=== PATIENT | male | born 1995 | race Caucasian/White ===

== ENCOUNTER 2020-10-27 15:30 | Outpatient (RCR) | payer OTHER, SELFPAY ==
--- NOTE | 2020-09-26 13:52 | PTOPEVAL ---
INITIAL PHYSICAL THERAPY EVALUATION and PLAN OF CARE Thank you for referring Sloan Griffin to [facility].? Bhavesh is scheduled to be seen for physical therapy? 2x/week for 4 weeks. Please review, sign, date and return this plan of care HUBER. I agree with and certify that the following plan of care is medically necessary. Referring Physician Date Admitting Provider: Attending Provider: Candido Leach, Referring Provider: *PT Outpatient Evaluation Start: 09/26/20 12:33 Freq: Status: Active Protocol: Document 09/26/20 12:33 SABRINA (Rec: 09/26/20 13:51 SABRINA [id number]) Therapy Assessment Status Assessment Status Assessment Status Evaluation Outpatient Past Medical History Past Medical History No Past Medical/Surgical History Patient/Family Denies Significant Past Medical/ Surgical History Source of Past Medical History Patient Evaluation Information Problem Diagnosis Pain L shoulder joint Onset last year - flare up Subjective Information Sloan has had long Query Text:As Reported By Patient/ standing L shoulder pain - Family couple of years ago - helping to move washer/dryer combo - friend lost 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 More recently - lifted 75# box at work. Sleeping - pain doesn't affect sleep too much - but when wakes up increased pain. Pain will stay with him rest of day. 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 Home Meds Must Be Re-entered With Each Visit. 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
--- NOTE | 2020-10-27 16:18 | PTOPEVAL ---
PHYSICAL THERAPY DISCHARGE SUMMARY Thank you for referring Sloan Griffin to [facility].? Bhavesh has done well in PT - goals have been met. He is to continue with his HEP. He is discharged from PT at this time. I agree with Bhavesh's discharge from PT. Referring Physician Date Admitting Provider: Attending Provider: Candido Leach, MD Referring Provider: Therapy Assessment Status Assessment Status Assessment Status Discharge Evaluation Information Problem Diagnosis Pain L shoulder joint Subjective Information Bhavesh states that his shoulder Query Text:As Reported By Patient/ doesn't hurt like it used to. Family Able to use chain saw, go metal detecting with friend, etc. 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 Pain Assessment Timing of Pain Assessment Timing of Pain Assessment Assessment Pain Scale Pain Scale Used Numeric (1 - 10) Self Report Pain Assessment Left Shoulder(s) Reported Pain Level 0 Lowest Pain Intensity 0 Greatest Pain Intensity 3 Pain Score Pain Score 0: Self Report Upper Extremity Range of Motion Scapular/ Shoulder Range of Motion Left Shoulder Flexion - Active 165 Shoulder Extension - Active 60 Shoulder Abduction - Active 168 Shoulder Medial Rotation - Active 90 Shoulder Medial Rotation - Active T7 Query Text:Reach Behind the Back Shoulder Lateral Rotation - Active 85 Shoulder Lateral Rotation - Active T3 Query Text:Reach Behind the Head Scapular/Shoulder Range of Motion ER in neutral - 88 Comments Upper Extremity Muscle Strength Testing Scapular/Shoulder Left Shoulder Flexion Strength 5 Normal Shoulder Extension Strength 5 Normal Shoulder Abduction Strength 5 Normal Shoulder Medial Rotation Strength 5 Normal Shoulder Lateral Rotation Strength 4+ Good + Shoulder Strength Comments no discomfort with strength testing today Palpation Assessment Palpation Palpation no tenderness at L AC jt, no capsular tightness with L g-h jt capsule Special Tests-Upper Extremity Shoulder Special Tests Empty Can (supraspinatus) Test Negative Left,Negative Right Speed's Test Negative Left,Negative Right Hawkin's Arya Test Negative Left,Negative Right Shoulder Special Tests Comments no discomfort with AC jt compression PT Clinical Summary Clinical Summary Protocol: PTEV
== END 2020-12-25 10:34 | disposition home or self-care (01) ==
LOC: ANHHIPT 15:30
PROVIDERS: Family Provider Pediatrics; PCP Nurse Practitioner; Visit Provider Orthopaedic Surgery Hand Surgery
DX: M25.512 Pain in left shoulder (principal)
CPT/HCPCS: 97110; 97140; 97161

== ENCOUNTER 2020-12-12 12:01 | Outpatient (CLI) | payer OTHER, SELFPAY ==
[2020-12-12 13:21] LABS: Hematocrit 45.4 % (42.0-52.0); Mean Corpuscular HGB Conc 35.2 g/dl (32-36); Mean Corpuscular Hemoglobin 29.6 pg (26-34); Mean Corpuscular Volume 84.1 fl (80-100); Mean Platelet Volume 10.5 fl (7.4-10.4); Platelet Count Result 166 k/mm3 (150-375); Red Cell Distribution Width 12.2 % (11.5-14.5); White Blood Count 9.4 K/mm3 (4.5-10.0)
[2020-12-12 13:33] LABS: Alanine Aminotransferase 32 U/L (4-50); Albumin Level 4.5 g/dL (3.5-5.1); Alkaline Phosphatase 51 U/L (38-126); Anion Gap 7 mmol/L (8-16); Aspartate Amino Transferase 37 U/L (17-59); Bilirubin,Total 0.6 mg/dL (0.2-1.3); Blood Urea Nitrogen 18 mg/dL (9-20); Calcium 8.8 mg/dL (8.4-10.2); Carbon Dioxide 28 mmol/L (22-30); Chloride 106 mmol/L (98-107); Cholesterol 160 mg/dL (0-200); Estimated Glomerular Filt Rate > 60; Glucose 97 mg/dL (75-110); HDL Direct 37 mg/dL; Potassium 3.9 mmol/L (3.4-5.0); Sodium 141 mmol/L (137-145); Triglycerides 146 mg/dL (<150)
[2020-12-12 13:37] LABS: Hemoglobin A1C 4.9 % (<5.7)
[2020-12-12 13:43] LABS: LDL Cholesterol Direct 88 mg/dL
[2020-12-12 14:03] LABS: Thyroid Stimulating Hormone 0.632 uIU/mL (0.465-4.680)
== END 2020-12-12 12:02 | disposition home or self-care (01) ==
DX: F84.0 Autistic disorder (principal)
CPT/HCPCS: 36415; 80053; 80061; 83036; 84443; 85027

== ENCOUNTER 2021-03-19 16:19 | Emergency (ER) | payer OTHER, SELFPAY ==
[2021-03-19 16:36] VITALS: BP 120/87; PULSE 100; RESP 18; TEMP 37; O2SAT 98
--- NOTE | 2021-03-19 16:39 | ED.URI ---
HPI - URI/Sore Throat General Chief Complaint: Upper Respiratory Infection Stated Complaint: Bilateral ear pain, Throat pain Time Seen by Provider: 03/19/21 17:07 Source: patient and RN notes reviewed Mode of arrival: ambulatory Limitations: no limitations History of Present Illness HPI Narrative: 25-year-old male presents with concern for 2 to 3-day history of rhinorrhea, nasal congestion, left ear pain. He reports symptoms started with a sore throat which has since resolved. He denies fever, body aches, chills, sweats, cough, shortness of breath. Reports he has been vaccinated for Covid. MD elicited complaint: nasal congestion (Ear pain) Related Data Home Medications Medication Instructions Recorded Confirmed olanzapine 7.5 mg PO DAILY 03/19/21 03/19/21 Allergies Allergy/AdvReac Type Severity Reaction Status Date / Time No Known Allergies Allergy Verified 03/19/21 17:04 Review of Systems Review of Systems: Narrative: CONSTITUTIONAL: Denies malaise, chills, sweats, or fever. EYES: Denies visual changes, redness, or discharge. ENT: Reports rhinorrhea, congestion, left ear pain. Denies sinus pain and sore throat. CARDIOVASCULAR: Denies chest pain, palpitations, or edema. RESPIRATORY: Denies cough or dyspnea. GASTROINTESTINAL: Denies abdominal pain, nausea, vomiting, diarrhea SKIN: Denies rash or itching. MUSCULOSKELETAL: Denies myalgia. NEUROLOGIC: Denies headache. All systems reviewed & are unremarkable except as noted in HPI and below PMFSH Comments At time of signature, agree with nursing past medical, surgical, social and family history. There is no relevant family history pertinent to the presenting complaint Exam Narrative: Exam Narrative: GENERAL: Well-appearing, well-nourished, and in no acute distress. HEAD: Normocephalic EYES: PERRLA, conjunctivae clear ENT: Nares clear, turbinates erythematous, clear discharge. Mucous membranes moist. TM pearly clark with dull light reflex bilaterally; no tragal tenderness. Oropharynx not erythematous without lesions. Tonsils not enlarged and without exudate, no drooling, no hoarseness, no trismus, uvula midline. NECK: Supple. No lymphadenopathy CHEST: Clear to auscultation, breath sounds equal. No wheezing, rhonchi, rales, or stridor. No respiratory distress, speaks in full sentences. HEART: Regular rate and rhythm. No murmur heard. SKIN: Warm, dry, no rash. NEURO: Alert and oriented x3. PSYCH: Normal mood and affect Course Course Emergency Course: Patient is aware of diagnosis, understands and agrees to treatment plan. Anticipatory guidance given. Patient agrees to follow-up as directed and is aware of reasons to seek care at the emergency department. Portions of this record may have been created with voice recognition software Vital Signs Vital signs: Vital Signs Temperature 98.6 F 03/19/21 16:36 Pulse Rate 100 03/19/21 16:36 Respiratory Rate 18 03/19/21 16:36 Blood Pressure 120/87 03/19/21 16:36 Pulse Oximetry 98 03/19/21 16:36 Temperature 98.6 F 03/19/21 16:36 Pulse Rate 100 03/19/21 16:36 Respiratory Rate 18 03/19/21 16:36 Blood Pressure 120/87 03/19/21 16:36 Pulse Oximetry 98 03/19/21 16:36 Reviewed. MDM - URI/Sore Throat MDM Narrative Medical decision making narrative: Differential diagnosis considered: Adames virus, strep pharyngitis, allergic rhinitis, upper respiratory tract infection, sinusitis, rhinosinusitis, nasopharyngitis. viral pharyngitis, otitis media, otitis externa, pneumonia, bronchitis, viral cough syndrome, viral syndrome, and influenza. Exam findings show no acute concerns or changes; patient is non-toxic appearing and is in no distress. Patient is appropriate for outpatient treatment and follow-up. Critical Care Time Critical Care Time Critical Care Time: No Discharge Plan Discharge Clinical Impression: Upper respiratory infection Qualifiers: URI type: unspecified viral URI Qualified Code(s
== END 2021-03-19 17:21 | disposition home or self-care (01) ==
PROVIDERS: Emergency Provider Nurse Practitioner
DX: J06.9 Acute upper respiratory infection, unspecified (principal)
CPT/HCPCS: 99213; G0463

== ENCOUNTER 2021-04-10 16:15 | Emergency (ER) | payer OTHER, SELFPAY ==
[2021-04-10 16:28] VITALS: BP 126/84; PULSE 86; RESP 18; TEMP 37.4; O2SAT 97
--- NOTE | 2021-04-10 17:01 | ED.SKABFB ---
HPI - Skin/Abscess/Foreign Bdy General Chief complaint: Skin/Abscess/Foreign Body Stated complaint: blister Time Seen by Provider: 04/10/21 16:46 Source: patient, family and RN notes reviewed Mode of arrival: ambulatory Limitations: no limitations History of Present Illness HPI narrative: Patient presents today complaining of burning pain and rash to the dorsums of both feet since waking up this morning. Denies itching. States redness of the rash is significantly worsened after his mother applied cortisone cream to the rash. Patient mowed in his Crocs last night, but he does mowing the same shoes every week without incident. He did shower after he finished mowing. No known contact of any allergens. Changed laundry soaps approximately 2 weeks ago, but has worn close washed in the soap since then without difficulty. Besides the cortisone cream he has not tried any [id number] interventions prior to arrival. MD complaint: rash Related Data Home Medications Medication Instructions Recorded Confirmed olanzapine 7.5 mg PO DAILY 04/10/21 04/10/21 omeprazole 20 mg PO DAILY 04/10/21 04/10/21 Allergies Allergy/AdvReac Type Severity Reaction Status Date / Time No Known Allergies Allergy Verified 04/10/21 16:19 Review of Systems Review of Systems: CONSTITUTIONAL: Denies body aches, fever, chills, or sweats. EYES: Denies visual changes, redness, or discharge. ENT: Denies rhinorrhea, congestion, sore throat, or otalgia. CARDIOVASCULAR: Denies chest pain, palpitations, or edema. RESPIRATORY: Denies cough or dyspnea. GASTROINTESTINAL: Denies abdominal pain, nausea, vomiting, or diarrhea. GENITOURINARY: Denies dysuria or hematuria. SKIN: + Burning rash MUSCULOSKELETAL: Denies back pain, joint pain, or myalgia. NEUROLOGIC: Denies headache, numbness, tingling, or weakness. PSYCH: Denies depression or anxiety. [facility] Past Medical History Medical History (Updated 04/10/21 @ 17:11 by Yolanda Caballero, SOTO, BC) Mood disorder Social History Social History Gender identity (if verbalized by the patient): Male Comments At time of signature, I have reviewed and agree with nursing past medical, surgical, social and family history unless otherwise noted. Please see nursing chart for further information. There is no relevant family history pertinent to the presenting complaint Exam Narrative: GENERAL: Well-appearing, well-nourished, and in no acute distress. HEAD: Normocephalic, atraumatic. EYES: EOMI. No redness or drainage. Conjunctivae normal. ENT: Mucous membranes pink and moist. NECK: Normal AROM. CHEST: No respiratory distress. EXTREMITIES: Normal range of motion. No edema. SKIN: Warm, dry. Capillary refill normal. Normal skin turgor. Mildly erythematous pinpoint scattered petechial rash to dorsums of all toes and extends to mid foot bilaterally. Right 3rd toe is tender to palpation, but no other areas are tender. Scant edema noted to toes. Distal sensation intact in all toes. Capillary refill normal. Pedal pulses normal. Full range of motion of all toes and ankles. NEURO: No focal deficits. Alert and oriented x3. Gait steady. PSYCH: Normal affect. No signs of depression or anxiety. Course Vital Signs Vital signs: Vital Signs Temperature 99.4 F 04/10/21 16:28 Pulse Rate 86 04/10/21 16:28 Respiratory Rate 18 04/10/21 16:28 Blood Pressure 126/84 04/10/21 16:28 Pulse Oximetry 97 04/10/21 16:28 Temperature 99.4 F 04/10/21 16:28 Pulse Rate 86 04/10/21 16:28 Respiratory Rate 18 04/10/21 16:28 Blood Pressure 126/84 04/10/21 16:28 Pulse Oximetry 97 04/10/21 16:28 Reviewed. Pt has been instructed to follow up with his PCP regarding his elevated blood pressure today. MDM - Skin/Abscess/Foreign Bdy Differential Diagnosis Differential diagnosis: Likely cellulitis, eczema, contact dermatitis and other (Tinea)
== END 2021-04-10 17:28 | disposition home or self-care (01) ==
PROVIDERS: Emergency Provider Nurse Practitioner
DX: R23.3 Spontaneous ecchymoses (principal)
CPT/HCPCS: 99211; G0463

== ENCOUNTER 2022-06-03 18:04 | Emergency (ER) | payer OTHER, SELFPAY ==
--- NOTE | 2022-06-03 18:05 | ED.EXTPRO ---
HPI - Extremity Problem General Stated complaint: lt knee pain Time Seen by Provider: 06/03/22 18:05 Source: patient Mode of arrival: ambulatory Limitations: no limitations History of Present Illness HPI Narrative: Sloan is a 26-year-old male patient presenting to the clinic today complaints of left knee pain that began this morning when he awoke.. He reports he had a sharp shooting pain in his knee this morning and is worse with ambulation, stepping up on stairs, and riding his bike. No known injury to the left knee Related Data Home Medications Medication Instructions Recorded Confirmed olanzapine 7.5 mg tablet 7.5 mg PO DAILY 04/10/21 04/10/21 Allergies Allergy/AdvReac Type Severity Reaction Status Date / Time No Known Allergies Allergy Verified 06/03/22 18:20 Review of Systems Review of Systems: Pertinent positives per HPI. Patient denies any fever, chills, rash, headache, visual changes, dizziness, cough, runny nose, sore throat, shortness of breath, chest pain, palpitations, nausea, vomiting, diarrhea, constipation, abdominal pain, or any urinary issues. [facility] Past Medical History Medical History Mood disorder Social History Social History Gender identity (if verbalized by the patient): Male Comments At the time of my signature, I reviewed and agree with the nursing past medical, surgical, social, and family history. There is no relevant family history pertinent to the patient complaint. Exam Narrative: General: Well-developed, well nourished, in no apparent distress Head: Normocephalic, atraumatic. Cardio: Regular rate and rhythm, s1 and s2 normal, no murmur appreciated. Resp: Clear to auscultation bilaterally, no rhonchi, rales, wheezing or rubs. Musculoskeletal: No deformity, mild tenderness to palpation around the anterior joint to palpation, pain with extension of the left knee as well as full flexion, no crepitus felt with flexion and extension, grossly normal range of motion, muscle strength strong and equal, peripheral pulse strong, no edema, no cyanosis, normal gait and station Course Course Emergency Course: Portions of this record may have been created with voice recognition software. Level of Care: Express Care Visit Vital Signs Vital signs: Vital signs reviewed MDM - Extremity (Nontraumatic) MDM Narrative Medical decision making narrative: At the time of visit patient is resting comfortably on the exam table. I suspect the patient has patellofemoral syndrome of the left knee. Supportive measures were discussed with the patient he voiced understanding of discharge instructions and agrees to the treatment plan Discharge Plan Discharge Clinical Impression: Patella-femoral syndrome Qualifiers: Laterality: left Qualified Code(s): M22.2X2 - Patellofemoral disorders, left knee Patient Disposition: Home, Self-Care Condition: Stable Instructions: Antibiotic Form, Patellofemoral Pain Syndrome (ED), Patellofemoral Pain Syndrome Exercises (ED) Additional Instructions: Main treatment for this condition is rest, ice, and elevation Wear Raj wrap as discussed May take Tylenol/Motrin as needed for pain-can take 600 to 800 mg of Motrin and 1 g of Tylenol together every 8 hours. Patellofemoral exercises given Follow-up with your PCP in 1 week if symptoms persist or sooner if they worsen Prescriptions: No Action olanzapine 7.5 mg tablet 7.5 mg PO DAILY omeprazole 20 mg capsule,delayed release(DR/EC) 20 mg PO DAILY Follow-up/Referrals: PHYSICIAN,[facility] [facility] [Primary Care Provider] - Time of Disposition: 18:22 Quality NIHSS Nursing Documentation ED NIHSS nursing documentation: reviewed/agree
[2022-06-03 18:15] VITALS: BP 137/82; PULSE 60; RESP 18; TEMP 36.7; O2SAT 100
== END 2022-06-03 18:29 | disposition home or self-care (01) ==
PROVIDERS: Emergency Provider Nurse Practitioner Family
DX: M22.2X2 Patellofemoral disorders, left knee (principal); F39 Unspecified mood [affective] disorder
CPT/HCPCS: 99212; G0463

== ENCOUNTER 2022-11-04 12:47 | Emergency (ER) | payer OTHER, SELFPAY ==
[2022-11-04 13:00] VITALS: BP 135/79; PULSE 95; RESP 16; TEMP 37.7; O2SAT 98
--- NOTE | 2022-11-04 13:09 | ED.URI ---
HPI - URI/Sore Throat General Chief Complaint: Upper Respiratory Infection Stated Complaint: Sore Throat,Fatigue Time Seen by Provider: 11/04/22 13:09 Source: patient Mode of arrival: ambulatory Limitations: no limitations History of Present Illness HPI Narrative: 27-year-old male presents with complaint of sore throat, mild nasal congestion, cough, chills starting this morning. Afebrile. Denies nausea vomiting diarrhea. No chest pain or shortness of breath. All systems reviewed and negative except as noted above. Related Data Home Medications Medication Instructions Recorded Confirmed olanzapine 7.5 mg tablet 7.5 mg PO DAILY 04/10/21 11/04/22 omeprazole 20 mg capsule,delayed 20 mg PO DAILY 11/04/22 11/04/22 release Allergies Allergy/AdvReac Type Severity Reaction Status Date / Time No Known Allergies Allergy Verified 11/04/22 13:02 Review of Systems Review of Systems: CONSTITUTIONAL: Denies fever. Reports chills, or sweats. EYES: Denies visual changes, redness, or discharge. ENT: Reports rhinorrhea, congestion, sore throat. Denies otalgia. CARDIOVASCULAR: Denies chest pain, palpitations, or edema. RESPIRATORY: reports cough. Denies dyspnea. GASTROINTESTINAL: Denies abdominal pain, nausea, vomiting, or diarrhea. GENITOURINARY: Denies dysuria or hematuria. SKIN: Denies rash or itching. MUSCULOSKELETAL: Denies back pain, joint pain, or myalgia. NEUROLOGIC: Denies headache, numbness, or weakness. PSYCHIATRIC: Denies anxiety or depression. All other systems reviewed are negative, except as documented in HPI. PMFSH Past Medical History Medical History Mood disorder Social History Social History Gender identity (if verbalized by the patient): Male Comments At time of signature, agree with nursing past medical, surgical, social and family history. There is no relevant family history pertinent to the presenting complaint. Exam Narrative: GENERAL: This is a well-nourished, well-developed patient, in no apparent distress. HEAD: normocephalic, atraumatic. EYES: PERRL. Sclera clear/white. Vision is grossly intact. EARS: External ears normal, auditory canals clear and without drainage, TMs normal without perforation. Hearing grossly intact. NOSE: External nose normal with no obvious nasal discharge, nares without redness, no rhinorrhea. THROAT: Mucous membranes moist, erythematous with mild swelling. No exudates. NECK: Neck supple, non-tender without lymphadenopathy, masses or thyromegaly. CARDIOVASCULAR: Regular rate and rhythm without murmurs, gallops, or rubs. RESPIRATORY: Clear to auscultation. Breath sounds equal bilaterally. No wheezes, rales, or rhonchi. SKIN: warm, Dry, intact with no suspicious lesions or rash, good texture and turgor. NEURO: awake, alert, and oriented to person, place and time. There were no obvious focal neurologic abnormalities. EXTREMITIES: No joint tenderness, effusion, or edema noted. Course Course Level of Care: Express Care Visit Vital Signs Vital signs: Vital Signs Temperature 37.7 C H 11/04/22 13:00 Pulse Rate 95 11/04/22 13:00 Respiratory Rate 16 11/04/22 13:00 Blood Pressure 135/79 11/04/22 13:00 Pulse Oximetry 98 11/04/22 13:00 Oxygen Delivery Room Air 11/04/22 13:00 Temperature 37.7 C H 11/04/22 13:00 Pulse Rate 95 11/04/22 13:00 Respiratory Rate 16 11/04/22 13:00 Blood Pressure 135/79 11/04/22 13:00 Pulse Oximetry 98 11/04/22 13:00 Oxygen Delivery Room Air 11/04/22 13:00 Reviewed MDM - URI/Sore Throat MDM Narrative Medical decision making narrative: Patient is aware of diagnosis, understands and agrees to treatment plan. Anticipatory guidance given. Patient agrees to follow-up as directed and is aware of reasons to seek care at the emergency department. Portions of this record
== END 2022-11-04 13:42 | disposition home or self-care (01) ==
PROVIDERS: Emergency Provider Nurse Practitioner Family
DX: J06.9 Acute upper respiratory infection, unspecified (principal); Z20.822 Contact with and (suspected) exposure to COVID-19
CPT/HCPCS: 87081; 87426; 87880; 99213; C9803; G0463

== ENCOUNTER 2023-05-17 15:57 | Outpatient (CLI) | payer OTHER, SELFPAY ==
--- NOTE | ~2023-05-17 | XR_ITS ---
XR knee LT 3V 05/17/2023 16:21 Indication: Left knee pain Procedure: 3 views left knee Comparison: No prior studies for comparison. Findings: There is anatomic alignment. No fracture, subluxation or dislocation. No joint effusion. No foreign bodies. Impression: 1: No significant bone or joint abnormality. Reviewed, dictated and finalized at location A. Impression: 1: No significant bone or joint abnormality.
== END 2023-05-17 15:58 | disposition home or self-care (01) ==
PROVIDERS: PCP Physician Assistant; Visit Provider Physician Assistant
DX: M25.562 Pain in left knee (principal)
CPT/HCPCS: 73562

== ENCOUNTER 2023-07-15 10:07 | Emergency (ER) | payer OTHER, SELFPAY ==
[2023-07-15 10:16] VITALS: BP 114/68; PULSE 61; RESP 18; TEMP 36.3; O2SAT 99
--- NOTE | 2023-07-15 10:21 | ED.URI ---
HPI - URI/Sore Throat General Chief Complaint: Upper Respiratory Infection Stated Complaint: Neck Swelling Time Seen by Provider: 07/15/23 10:21 Source: patient Mode of arrival: ambulatory Limitations: no limitations History of Present Illness HPI Narrative: 27 yo F presents with c/o sore throat and swollen neck glands starting yesterday. Denies having any other symptoms. Afebrile. Neg home covid test. All systems reviewed and negative except as noted above. Related Data Home Medications Medication Instructions Recorded Confirmed olanzapine 7.5 mg tablet 7.5 mg PO DAILY 04/10/21 07/15/23 omeprazole 20 mg capsule,delayed 20 mg PO DAILY 11/04/22 07/15/23 release Allergies Allergy/AdvReac Type Severity Reaction Status Date / Time No Known Allergies Allergy Verified 07/15/23 10:12 Review of Systems Review of Systems: CONSTITUTIONAL: Denies fever, chills, or sweats. EYES: Denies visual changes, redness, or discharge. ENT: Denies rhinorrhea, congestion . Reports sore throat. Denies otalgia. CARDIOVASCULAR: Denies chest pain, palpitations, or edema. RESPIRATORY: Denies cough or dyspnea. GASTROINTESTINAL: Denies abdominal pain, nausea, vomiting, or diarrhea. GENITOURINARY: Denies dysuria or hematuria. SKIN: Denies rash or itching. MUSCULOSKELETAL: Denies back pain, joint pain, or myalgia. NEUROLOGIC: Denies headache, numbness, or weakness. PSYCHIATRIC: Denies anxiety or depression. All other systems reviewed are negative, except as documented in HPI. PMFSH Past Medical History Medical History Mood disorder Social History Social History Gender identity (if verbalized by the patient): Male Comments At time of signature, agree with nursing past medical, surgical, social and family history. There is no relevant family history pertinent to the presenting complaint. Exam Narrative: GENERAL: This is a well-nourished, well-developed patient, in no apparent distress. HEAD: normocephalic, atraumatic. EYES: PERRL. Sclera clear/white. Vision is grossly intact. EARS: External ears normal, auditory canals clear and without drainage, TMs normal without perforation. Hearing grossly intact. NOSE: External nose normal with no obvious nasal discharge, nares without redness, no rhinorrhea. THROAT: Mucous membranes moist, erythema to posterior pharynx without exudates or swelling. NECK: Neck supple, non-tender without lymphadenopathy, masses or thyromegaly. CARDIOVASCULAR: Regular rate and rhythm without murmurs, gallops, or rubs. RESPIRATORY: Clear to auscultation. Breath sounds equal bilaterally. No wheezes, rales, or rhonchi. \ SKIN: warm, Dry, intact with no suspicious lesions or rash, good texture and turgor. NEURO: awake, alert, and oriented to person, place and time. There were no obvious focal neurologic abnormalities. EXTREMITIES: No joint tenderness, effusion, or edema noted. Course Course Level of Care: Express Care Visit Vital Signs Vital signs: Vital Signs Temperature 36.3 C L 07/15/23 10:16 Pulse Rate 61 07/15/23 10:16 Respiratory Rate 18 07/15/23 10:16 Blood Pressure 114/68 07/15/23 10:16 Pulse Oximetry 99 07/15/23 10:16 Oxygen Delivery Room Air 07/15/23 10:16 Temperature 36.3 C L 07/15/23 10:16 Pulse Rate 61 07/15/23 10:16 Respiratory Rate 18 07/15/23 10:16 Blood Pressure 114/68 07/15/23 10:16 Pulse Oximetry 99 07/15/23 10:16 Oxygen Delivery Room Air 07/15/23 10:16 Reviewed MDM - URI/Sore Throat MDM Narrative Medical decision making narrative: positive Rapid strep test. Will treat with amoxicillin. Patient is aware of diagnosis, understands and agrees to treatment plan. Anticipatory guidance given. Patient agrees to follow-up as directed and is aware of reasons to seek care at the emergency department. Port
== END 2023-07-15 10:41 | disposition home or self-care (01) ==
PROVIDERS: Emergency Provider Nurse Practitioner Family; PCP Physician Assistant
DX: J02.0 Streptococcal pharyngitis (principal)
CPT/HCPCS: 87880; 99213; G0463

== ENCOUNTER 2023-08-16 13:00 | Outpatient (RCR) | payer OTHER, SELFPAY ==
--- NOTE | 2023-06-10 09:08 | PCPTNOTE ---
Patient was called after was late for scheduled appointment. He rescheduled to next available slot 1.5 weeks from today.
--- NOTE | 2023-06-22 16:49 | OPREHPOC ---
Outpatient Therapy Plan of Care This is a Multidisciplinary Plan of Care that may contain components documented by all disciplines (PT, OT, and ST.) PT Problem 1 PT Problem #1 Knowledge Deficit PT Goal 1 Goal Pt will be independent in HEP Pt will verbalize understanding of diagnosis and prognosis Target Visit 4 PT Problem 2 PT Problem #2 Pain PT Goal 1 Goal Pt will report greatest pain level at 3/10 or less to improve ADLs Target Visit 4 PT Goal 2 Goal Pt will report resolution of pain to return to PLOF Target Visit 8 PT Problem 3 PT Problem #3 Impaired Functional Mobil PT Goal 1 Goal Pt will demo appropriate lunge and squat kinematics without cueing and without pain Target Visit 8
--- NOTE | 2023-06-22 16:49 | PTOPEVAL1 ---
Assessment and note entered by Jerilyn Lim, PT Evaluation Information Assessment Status Evaluation Diagnosis Left knee pain Onset couple months ago Subjective Information x-rays normal Uses a foam roller and rolls out knee and stretching at home and at the gym 5-7 days a week. Uses an chary for his workouts. Has lost 100 lbs in the last year. 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 For home to work is a little over a mile. 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 Varies. Standing all day at work bothers knee but work will at times allow him to walk out an order. Reports in April slipped at work on laundry detergent while in the trailer. Did not file worker's compensation Reported Pain Level Pain Score 0: Self Report Assessment PT Clinical Summary Pt is a highly active young adult with complaints of left knee pain. Demo's good functional strength however demo's abnormal ankle/foot/knee alignment , (+) testing for ligament laxity of left knee and possibly meniscus damage, and poor kinematics with high level activities. Pt has been educated on multiple modifications today to initiate plan of care including appropriate shoe zee and orthotics, cryotherapy, alignment, and kinematics of movement. Pt will greatly benefit from physical therapy to progress plan and return to pain-free prior level of function Plan of Care PT Services Indicated Yes Treatment Frequency and 1x weekly x 8 weeks Duration These treatments will address the objective and functional deficits as defined above. The patient will be advanced safely and appropriately in order for the patient to progress towards his/her prior level of function. Additional exercises will be introduced and as well as a comprehensive home exercise program upon discharge, if needed, ?to ensure carryover of functional gains achieved in the clinic. This treatment plan has been reviewed and agreement upon by the patient.
--- NOTE | 2023-07-26 09:55 | PCPTNOTE ---
Patient called & cancelled scheduled appointment this date due to patient being called into work
--- NOTE | 2023-08-16 13:48 | PTOPDC ---
Assessment and note entered by Jerilyn Lim, PT Assessment Status Discharge Diagnosis Left knee pain Onset couple months ago Subjective Information Self-percieved improvement: 99% Reports is doing a lot better. Hasn't had to much pain. Did a biking challenge today at the gym with a weighted wheel and had no pain. 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 Reported Pain Level Pain Score 0: Self Report Assessment PT Clinical Summary Pt has attended therapy consistently for knee pain . He has applied instruction to his work out regiment and activities, today reports feeling 99% improved overall. 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 He reports he has been able to return to high level bike riding with resistance without pain. Today he was instructed on maintaining his progress, when to return to therapy, and benefits of continuing stretching. As patient has met all his goals and therapy related goals, he is being discharged at this time. Plan of Care PT Services Indicated No
== END 2023-08-16 13:53 | disposition home or self-care (01) ==
LOC: ANHHIPT 13:00
PROVIDERS: PCP Physician Assistant; Visit Provider Physician Assistant
DX: M25.562 Pain in left knee (principal)
CPT/HCPCS: 97014; 97110; 97112; 97161; 97750; G0283

== ENCOUNTER 2023-08-23 12:48 | Emergency (ER) | payer OTHER, SELFPAY ==
--- NOTE | ~2023-08-23 | XR_ITS ---
XR knee LT 3V 08/23/2023 13:46 Indication: Left knee pain Procedure: 3 views left knee Comparison: 05/17/2023 Findings: There is anatomic alignment. No fracture, subluxation or dislocation. No joint effusion. No foreign body. Impression: 1: No significant bone or joint abnormality. Reviewed, dictated and finalized at location L. [facility] PRESS TENDER HEAD Impression: 1: No significant bone or joint abnormality.
[2023-08-23 13:26] VITALS: BP 137/89; PULSE 68; RESP 16; TEMP 36.3; O2SAT 100
--- NOTE | 2023-08-23 13:54 | ED.LOWEXIN ---
HPI - Extremity Injury (Lower) General Chief Complaint: Extremity Injury, Lower Stated Complaint: Left Knee Injury Time Seen by Provider: 08/23/23 13:45 Source: patient Mode of arrival: ambulatory Limitations: no limitations History of Present Illness HPI Narrative: Sloan is a 27-year-old male patient presenting to clinic today with complaints of left knee pain. He reports he injured his near by a week ago when pulling a Pallet off the truck and states that the palate slipped and then he felt a pop in his knee. Is having pain to the posterior knee. Related Data Home Medications Medication Instructions Recorded Confirmed olanzapine 7.5 mg tablet 7.5 mg PO DAILY 04/10/21 07/15/23 omeprazole 20 mg capsule,delayed 20 mg PO DAILY 11/04/22 07/15/23 release Allergies Allergy/AdvReac Type Severity Reaction Status Date / Time No Known Allergies Allergy Verified 07/15/23 10:12 Review of Systems Review of Systems: Pertinent positives per HPI. Patient denies any fever, chills, rash, headache, visual changes, dizziness, cough, runny nose, sore throat, shortness of breath, chest pain, palpitations, nausea, vomiting, diarrhea, constipation, abdominal pain, or any urinary issues. PMFSH Past Medical History Medical History Mood disorder Social History Social History Gender identity (if verbalized by the patient): Male Comments At the time of my signature, I reviewed and agree with the nursing past medical, surgical, social, and family history. There is no relevant family history pertinent to the patient complaint. Exam Narrative: General: Well-developed, well nourished, in no apparent distress Head: Normocephalic, atraumatic. Cardio: Regular rate and rhythm, s1 and s2 normal, no murmur appreciated. Resp: Clear to auscultation bilaterally, no rhonchi, rales, wheezing or rubs. Musculoskeletal: No deformity, no swelling, tender to palpation over the PCL with some mild discomfort over the anterior/medial/lateral knee, pain with full flexion and full extension of the left knee, grossly normal range of motion, muscle strength strong and equal, peripheral pulse strong, no edema, no cyanosis, normal gait and station Course Course Emergency Course: Portions of this record may have been created with voice recognition software. Level of Care: Express Care Visit Vital Signs Vital signs: Vital Signs Temperature 36.3 C L 08/23/23 13:26 Pulse Rate 68 08/23/23 13:26 Respiratory Rate 16 08/23/23 13:26 Blood Pressure 137/89 08/23/23 13:26 Pulse Oximetry 100 08/23/23 13:26 Temperature 36.3 C L 08/23/23 13:26 Pulse Rate 68 08/23/23 13:26 Respiratory Rate 16 08/23/23 13:26 Blood Pressure 137/89 08/23/23 13:26 Pulse Oximetry 100 08/23/23 13:26 Vital signs reviewed MDM - Extremity Injury (Lower) MDM Narrative Medical decision making narrative: At the time of visit patient is resting comfortably on the exam table. Patient appears to be nontoxic. Left knee x-ray was performed supportive measures were discussed with the patient and they voiced understanding discharge instructions and agrees to treatment plan. Return precautions reviewed Differential Diagnosis Differential diagnosis: Likely acute internal derangement of knee and other (Knee strain) Imaging Data Radiologist's impression: ITS Impressions Knee X-Ray 08/23/23 13:46 Impression: 1: No significant bone or joint abnormality. Discharge Plan Discharge Clinical Impression: Knee sprain Qualifiers: Encounter type: initial encounter Involved ligament of knee: unspecified ligament Laterality: left Qualified Code(s): S83.92XA - Sprain of unspecified site of left knee, initial encounter Patient Disposition: Home, Self-Care Condition: Stable Instructions: Antibiotic Form,
== END 2023-08-23 14:07 | disposition home or self-care (01) ==
PROVIDERS: Emergency Provider Nurse Practitioner Family; PCP Physician Assistant
DX: S83.92XA Sprain of unspecified site of left knee, initial encounter (principal); X50.0XXA Overexertion from strenuous movement or load, initial encounter
CPT/HCPCS: 73562; 99213; G0463

== ENCOUNTER 2023-12-13 10:45 | Outpatient (RCR) | payer OTHER, SELFPAY ==
--- NOTE | 2023-10-11 15:12 | PTOPEVAL1 ---
Assessment and note entered by Jerilyn Lim, PT Evaluation Information Assessment Status Evaluation Diagnosis Pain in left knee, weakness Onset 09/18/23 Subjective Information Pt reports was pulling pallets at work and was moving in a straight line down a ramp and knee popped and he hit the ground . Was pulling tote behind him. Received an MRI that was read as normal Work restrictions currently 30 minutes standing at a time, and only pushing/pulling 15 lbs. 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 Had previously performed therapy and completed therapy then reinjured at work. Pt previously had ridden his bike for commuting and now is driving. Currently working out 4 days a week with 3 rest days. Has modified work out to minimize legs but noticed that when he wasn't working his legs the knee hurt worse. Started working out while was waiting for therapy since therapy approval took so long. So returned to working out with glute bridges and hamstring extensions. Focusing on glutes and hamstrings, no longer performing leg press. Reports is going through his insurance because work comp disagreed with his doctor. Reports therapeutic case manager was fighting with pt's MD, yelling at her. MRI went thru his insurance as well. Reports has had 3 caser since this injury. The most current was Marty Sood Reported Pain Level Pain Score 0: Self Report Assessment PT Clinical Summary Pt presents after work related injury to left knee . Had previously completed therapy for left knee pain with success and was able to return to full activity. Pt reports pain with squatting and standing the most. Pt varies from 0-7/10. Reports increased pain in posterior knee with palpation and deep squats, with valgus and varus in neutral, postures in genu recurvatum bilat. Presentation suggestive of sprain/strain of tissues posterior knee tissues. Pt also demos decreased lateral strength in gluteus medius and adductors bilaterally. Pt will benefit from physical therapy to improve strength, standing postures, and pain to return to PLOF. Plan of Care Interventions Electrical Stimulation,Hot Pack/Cold Pack,Manual Therapy,Neuro Re-education,Patient/Caregiver Educati,Therapeutic Activities,Therapeutic Exercise,Self-Care/Home Management,Ultrasound Other Interventions taping, dry needling PT Services Indicated Yes Treatment Frequency and 1-2x weekly x 10 visits Duration These treatments will address the objective and functional deficits as defined above. The patient will be advanced safely and appropriately in order for the patient to progress towards his/her prior level of function. Additional exercises will be introduced and as well as a comprehensive home exercise program upon discharge, if needed, ?to ensure carryover of functional gains achieved in the clinic. This treatment plan has been reviewed and agreement upon by the patient.
--- NOTE | 2023-10-11 15:13 | OPREHPOC ---
Outpatient Therapy Plan of Care This is a Multidisciplinary Plan of Care that may contain components documented by all disciplines (PT, OT, and ST.) PT Goal 1 Goal Pt will be independent in HEP Pt will verbalize understanding of diagnosis and prognosis Target Visit 5 PT Problem 2 PT Problem #2 Pain PT Goal 1 Goal Pt will report greatest pain level at 3/10 or less to improve ADLs and activities Target Visit 5 PT Goal 2 Goal Pt will report resolution of pain to return to PLOF Target Visit 10 PT Problem 3 PT Problem #3 Impaired Range of Motion PT Goal 1 Goal Pt will demo AROM 0-130 left knee to equal unaffected knee Target Visit 10 PT Problem 4 PT Problem #4 Impaired Strength PT Goal 1 Goal Pt will demo strength of 4+/5 or greater in all tested planes LLE Target Visit 10
--- NOTE | 2023-11-08 09:12 | PCPTNOTE ---
Patient called & cancelled scheduled appointment this date due to having plans.
--- NOTE | 2023-12-14 17:39 | PTOPDC ---
Assessment and note entered by Jerilyn Lim, PT Assessment Status Discharge Diagnosis Pain in left knee Onset 09/18/23 Subjective Information Pt reports he has been able to return to normal weight lifting without issue. Reports was able to play pickle ball yesterday for 4 hours and had some sharp pain in the back of the left knee. Reports did some stretches and felt better. Pt still working for [employer], has been cleared to return to work. 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 Pt reports only has pain here and there but then it goes away is only issue having. Self-perceived improvement: 85%, last bit is due to the pain that occurs with high level activities Reported Pain Level Pain Score 0: Self Report Assessment PT Clinical Summary Pt has attended therapy consistently for left knee pain normal MRI. Pt paulo's ligament laxity overall however special tests are all negative for issues. Pt paulo's improved pain and with greatly improved knee kinematics with high level static and low level dynamic activities. Did have difficulty with coordination with high level dynamic activities with alignment and foot planting, however pt reports is doing well with his activities both at work and recreationally. He has been educated on his home exercise program, and when to return to therapy if is needed in the future. Plan of Care PT Services Indicated No
== END 2023-12-15 14:46 | disposition home or self-care (01) ==
LOC: ANHHIPT 10:45
PROVIDERS: PCP Physician Assistant; Visit Provider Physician Assistant
DX: M25.562 Pain in left knee (principal)
CPT/HCPCS: 97014; 97110; 97112; 97161; 97530; 97750; G0283

== ENCOUNTER 2024-01-11 11:25 | Outpatient (CLI) | payer OTHER, SELFPAY ==
[2024-01-11 13:42] LABS: LDL Cholesterol Direct 81 mg/dL
[2024-01-11 14:24] LABS: Alanine Aminotransferase 25 U/L (6-50); Albumin Level 4.8 g/dL (3.5-5.1); Alkaline Phosphatase 48 U/L (38-126); Anion Gap 8 mmol/L (4-12); Aspartate Amino Transferase 24 U/L (17-59); Bilirubin,Total 1.2 mg/dL (0.2-1.3); Blood Urea Nitrogen 15 mg/dL (9-20); Calcium 9.3 mg/dL (8.4-10.2); Carbon Dioxide 26 mmol/L (22-30); Chloride 107 mmol/L (98-107); Cholesterol 140 mg/dL (0-200); Estimated Glomerular Filt Rate > 60; Glucose 93 mg/dL (65-110); HDL Direct 47 mg/dL; Potassium 3.9 mmol/L (3.4-5.0); Sodium 141 mmol/L (137-145); Triglycerides 55 mg/dL (<150)
[2024-01-11 14:55] LABS: Thyroid Stimulating Hormone 0.546 uIU/mL (0.465-4.680)
[2024-01-11 15:09] LABS: Hemoglobin A1C 4.8 % (<5.7)
== END 2024-01-11 11:26 | disposition home or self-care (01) ==
PROVIDERS: PCP Physician Assistant
DX: F31.9 Bipolar disorder, unspecified (principal); F84.0 Autistic disorder
CPT/HCPCS: 36415; 80053; 80061; 83036; 84443

== ENCOUNTER 2024-04-24 08:00 | Outpatient (RCR) | payer OTHER, SELFPAY ==
--- NOTE | 2024-03-14 13:53 | PTOPEVAL1 ---
Assessment and note entered by Jerilyn Lim, PT Evaluation Information Assessment Status Evaluation Diagnosis pain in left shoulder ICD-10 Condition Codes (PT) M25.512,Weakness R53.1 Other ICD-10 Condition Codes ( abnormal posture R29.3 PT) Onset 5 weeks Subjective Information Pt reports initial injury to left shoulder 6 years ago, was told it was a slight tear that should heal on it's own. Had not been having any issues in the last two years. Started bothering him again just a couple weeks ago badly, but about 5 weeks ago noticed a mild discomfort so modified activities in hopes pain would resolve. Pain has worsened and is now worse than it was during initial injury. Pt states as provided naproxen by MD, has been alternating this with Tylenol which neither seems to help. Has also been alternating heat and ice and stretching it. Pain is in front of shoulder and up into left side of neck. Reports with bring arm straight up in the air the shoulder will pop Has not been doing his UE work outs. Is working at [employer] [place] [facility] [place] Has been deboarding and boarding as a modification to work secondary to shoulder pain. Reported Pain Level Pain Score 8: Self Report Assessment PT Clinical Summary Pt presents with c/o left shoulder pain that has progressed over the past 5 weeks. Prior history of partial tear 6 years ago but this had resolved. Reports prior to 5 weeks ago had not had pain in the left shoulder in two years. Evaluation shows decreased active ROM, decreased strength, and multiple (+) special tests for rotator cuff involvement. Current his employer has modified his work from heavy lifting to minimal lifting to accommodate patient discomfort, and patient has ceased his upper extremity work outs. He currently has pain even at rest and has increased pain with laying down. Pt will benefit from physical therapy to address deficits, improve pain, and return to PLOF. Plan of Care Interventions Electrical Stimulation,Hot Pack/Cold Pack,Manual Therapy,Neuro Re-education,Patient/Caregiver
--- NOTE | 2024-03-14 13:54 | OPREHPOC ---
Outpatient Therapy Plan of Care This is a Multidisciplinary Plan of Care that may contain components documented by all disciplines (PT, OT, and ST.) PT Problem 1 PT Problem #1 Knowledge Deficit PT Goal 1 Goal Pt will be independent in HEP Pt will verbalize understanding of diagnosis and prognosis Target Visit 6 PT Problem 2 PT Problem #2 Pain PT Goal 1 Goal Pt will report lowest pain rating at 0/10 to show improvement in overall discomfort Target Visit 3 PT Goal 2 Goal Pt will report greatest pain level at 3/10 or less to improve ADLs and activities Target Visit 6 PT Problem 3 PT Problem #3 Impaired Range of Motion PT Goal 1 Goal Pt will demo equal ROM L shoulder compared to to R shoulder without pain Target Visit 6 PT Problem 4 PT Problem #4 Impaired Strength PT Goal 1 Goal Pt will demo equal strength BUE in all tested planes Target Visit 6
--- NOTE | 2024-04-24 08:56 | PTOPPROG ---
Assessment and note entered by Jerilyn Lim, PT Evaluation Information Assessment Status Progress Diagnosis pain in left shoulder ICD-10 Condition Codes (PT) M25.512,Weakness R53.1 Other ICD-10 Condition Codes ( abnormal posture R29.3 PT) Onset 11 weeks Subjective Information Arm still pops when bringing it up in the air to stretch. Reports shoulder has it's ups and downs , doesn't think is going to get better. Has not had MRI on left shoulder. Wonders if there is some arthritis in his shoulder. Had tried to progress shoulder at gym with show dog trainer and ceased this as was feeling worse . 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 Self perceived improvement 40-50% Assessment PT Clinical Summary Pt has consistently attended therapy for left shoulder pain. History of initial injury 6 years ago, did rehab and after multiple years it improved. Approx 11 weeks ago noted increasing pain that progressed until it felt worse than initial injury. Initially demo'd weakness, and decreased ROM, had to modify work related activities, and had multiple special tests. Today ROM is closer to unaffected UE ROM, strength is 5/ 5 in all tested planes, and special tests only show mild weakness with supraspinatus testing. While patient has been able to return to work activities, he has not been able to return to his high level recreational activities such as weight lifting. Also continues to have pain though his function is improving. Pt will benefit from further therapy to address high level strengthening and activities to reduce pain and return to PLOF. Plan of Care Interventions Electrical Stimulation,Hot Pack/Cold Pack,Manual Therapy,Neuro Re-education,Patient/Caregiver Educati,Therapeutic Activities,Therapeutic Exercise,Self-Care/Home Management,Ultrasound PT Services Indicated Yes Treatment Frequency and 1x weekly x 6 visits Duration These treatments will address the objective and functional deficits as defined above. The patient will be advanced safely and appropriately in order for the patient to progress towards his/her prior level of function. Additional exercises will be introduced and as well as a comprehensive home exercise program upon discharge, if needed, ?to ensure carryover of functional gains achieved in the c
--- NOTE | 2024-05-16 09:24 | PTOPDC ---
Assessment and note entered by Jerilyn Lim, PT Evaluation Information Assessment Status Discharge - Pt Not Present Diagnosis pain in left shoulder ICD-10 Condition Codes (PT) M25.512,Weakness R53.1 Other ICD-10 Condition Codes ( abnormal posture R29.3 PT) Onset 11 weeks Subjective Information Arm still pops when bringing it up in the air to stretch. Reports shoulder has it's ups and downs , doesn't think is going to get better. Has not had MRI on left shoulder. Wonders if there is some arthritis in his shoulder. Had tried to progress shoulder at gym with field trainer and ceased this as was feeling worse . 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 Self perceived improvement 40-50% Assessment PT Clinical Summary As of last reevaluation pt had returned to 5/5 strength, greater ROM, was able to perform ADLs and work activities with modifications. Further authorization was requested from insurance and only two visits were granted. With discussion with pt he stated he would like to be finished with therapy for now. He has not received an MRI for the shoulder, continues to have pain and crepitus with activities, and has yet to return fully to his high level activities with his fitness regiment. Pt is thus being discharged per request however would likely benefit from a follow up with PCP and possibly further imaging and/or ortho consult. Plan of Care PT Services Indicated No
== END 2024-05-16 09:27 | disposition home or self-care (01) ==
LOC: ANHHIPT 08:00
PROVIDERS: PCP Physician Assistant; Visit Provider Physician Assistant
DX: M25.512 Pain in left shoulder (principal)
CPT/HCPCS: 97014; 97035; 97110; 97112; 97140; 97161; 97750; G0283

== ENCOUNTER 2024-05-30 17:43 | Emergency (ER) | payer OTHER, SELFPAY ==
[2024-05-30 17:51] VITALS: BP 143/84; PULSE 71; RESP 16; TEMP 36.7; O2SAT 99
--- NOTE | 2024-05-30 17:52 | ED.URI ---
HPI - URI/Sore Throat General Chief Complaint: Upper Respiratory Infection Stated Complaint: throat tightness Time Seen by Provider: 05/30/24 17:53 Source: patient, RN notes reviewed and old records reviewed Mode of arrival: ambulatory Limitations: no limitations History of Present Illness HPI Narrative: 28-year-old male to [facility] for complaint of throat tightness for 1 week that has become worse over the past 2 days. Patient reports a history of allergies to cats. 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 Patient states that he does wear a respirator the majority of his work day. Patient denies fever, cough, hoarseness , difficulty swallowing, shortness of breath. Patient has been treating at home with Benadryl before bed with some relief. Patient resting comfortably in exam no acute distress. Respirations even and nonlabored. Patient able to control secretions. Patient able to tolerate fluids by mouth. Patient able to speak in full sentences without difficulty. Related Data Home Medications Medication Instructions Recorded Confirmed olanzapine 7.5 mg tablet 7.5 mg PO DAILY 04/10/21 05/30/24 omeprazole 20 mg capsule,delayed 20 mg PO DAILY 11/04/22 05/30/24 release Allergies Allergy/AdvReac Type Severity Reaction Status Date / Time cat dander Allergy Swelling Verified 05/30/24 18:06 of Lip/Tongue/Throat Review of Systems Review of Systems: All systems reviewed & are unremarkable except as noted in HPI and below Constitutional: Constitutional: Reports no additional constitutional complaints Eyes: Eyes: Reports no additional eye complaints ENT: Reports as per HPI and Reports sore throat ( patient describes as throat tightness) Cardiovascular: Cardiovascular: Reports no additional cardiovascular complaints, Denies chest pain and Denies dyspnea Respiratory: Respiratory: Reports no additional respiratory complaints, Denies cough and Denies dyspnea Musculoskeletal: Musculoskeletal: Reports no additional musculoskeletal complaints Neurologic: Reports system reviewed and no additional complaints, except as documented Psychiatric: Psychiatric: Reports no additional psychiatric complaints PMFSH Past Medical History Medical History Mood disorder Social History Social History Gender identity (if verbalized by the patient): Male Comments At the time of my signature, I reviewed and agree with the nursing past medical, surgical, social, and family history. There is no relevant family history pertinent to the patient complaint. Exam Const: General: cooperative, healthy appearing, comfortable, no acute distress, alert and well nourished Nutritional Appearance: well nourished Orientation/consciousness: patient oriented x3 Limitations: no limitations HENMT: Head: normal to inspection Ears: external ears normal Face/Nose/Sinus: Normal external nose present, Normal nares present, normal facial exam, No erythema and No edema Face and sinus: normal facial exam, no erythema and no edema Mouth: Yes Normal oral and palatal mucosa present Throat: uvula midline and posterior oropharynx abnormal erythema; no edema Eyes: General: appearance normal, both eyes and all related structures Neck: Neck: normal visual inspection, full ROM and no meningeal signs Lymphatic: no lymphadenopathy noted and no lymphedema noted Chest: Chest palpation & inspection: normal inspection of the chest Resp: Effort & Inspection: normal respiratory effort and able to speak in complete sentences Auscultation: clear to auscultation bilaterally Cardio: Jugular venous distension: no JVD Rate: regular rate Rhythm: regular rhythm Back/Spine/Pelvis: Cervical Spine: cervical ROM normal Skin: General skin exam: normal color, no rashes
[2024-05-30 18:15] LABS: EDSTREPNEGPOS1 Negative (Negative)
== END 2024-05-30 18:25 | disposition home or self-care (01) ==
PROVIDERS: Emergency Provider Nurse Practitioner Family; PCP Physician Assistant
DX: J30.81 Allergic rhinitis due to animal (cat) (dog) hair and dander (principal)
CPT/HCPCS: 87081; 87880; 99213; G0463

== ENCOUNTER 2025-01-08 18:52 | Emergency (ER) | payer OTHER, SELFPAY ==
--- OUTSIDE RECORDS SUMMARY | 2025-01-08 18:56 | XMS_ITS | Clinical Summary ---
Author Organization [facility] Address [address] [place] [address] Care Team Providers Care Engineering Specialist Name Role Phone Malika El MD Primary Care Provider Source Comments [facility],non-owned Affiliates and Associated Physician Practices is amultiple site organization consisting of ambulatory clinics and hospital sitesin [place], [place], [place] and [place]. This disclosure is being madepursuant to the Care Everywhere program and may not contain all information available regarding this patient. Last updated [employer] [facility] Allergies Active Allergy Reactions Criticality Noted Date Comments Sulfamethoxazole W-Trimethoprim Rash Low 03/2014 Medications * Be aware that medications may not be up to date on this document. Alwaysverify current medications with the patient. OLANZapine (ZYPREXA) 7.5 MG tablet Take 7.5 mg by mouth once daily. Active omeprazole (PRILOSEC) 20 MG capsule Take 20 mg by mouth once daily Active Active Problems Problem Noted Date Diagnosed Date Hyperthyroidism 08/06/2014 Overview (03/30/2016): 06/25/2014 - [place], [place] - Na 140 mmol/L, K 4.4 mmol/L, Cl 103 mmol/L, CO2 69392 mmol/L, TSH 0.03 uIU/mL (0.27-4.20); WBC 7.4 K, hemoglobin 15.9 g/dL, hematocrit 48 %, ples 234 06/27/2014 - [place], [place] - free T4 1.82 ng/dL (0.90-1.70), total T3 2.22 ng/mL (0.80-2.00). 07/26/2014 - [place], [place] - TSH 0.00 uIU/mL (0.35-4.94), free T4 1.67 ng/dL (0.70-1.48), total T3 256 ng/mL (60-181); hemoglobin A1c 5.0%, glucose 100 mg/dL, insulin 5.7 uIU/mL (2.0-19.5) 08/05/2014 - [email or web address] - Thyroid peroxidase antibody 1 IU/mL (< 9.0), thyroglobulin antibody < 1 IU/ml (< 1.0), TSI 39 % (< 140); TSH 0.01 uiU/L (0.5-4.30); total T3 334 ng/dL (84-179); total T4 10.8 ug/dL (4.5-12.0); T3/T4 30.8 (> 20, Graves disease). date Age (yr) TSH (uIU/mL) Free T4 (ng/dL) Total T4 (ug/dL) Total T3 (ng/dL) Methimazole (mg/day) 06/25/14-05/10 0.03 (0.27-4.20) - - - 06/27/14-05/10 - 1.82 (0.90-1.82) - 2.22 ng/mL (0.80-2.0) - 07/26/14-06/09 0.00 (0.35-4.94) 1.67 (0.7-1.48) - 256 (60-181) - 08/05/14-07/10 0.01 uIU/L (0.5-4.30) - 10.8 (4.5-12.00) 334 (84-179) - 11/26/14 1.67 (0.35-4.94) - 5.16 (4.87-11.72) - 5 02/28/15 1.14 (0.35-4.94) - 5.90 (4.87-11.72) 139 (60-181) 5 04/30/15 17-03/09 1.02 (0.35-4.94) - 6.97 (4.87-11.720 127 (60-181) 5 05/28/15 17-812 0.75 (0.35-4.94) - 7.18 (4.87-11.72) 136 (60-181) - 09/26/15 18 1.12 (0.35-4.94) 6.58 (4.87-11.72) 137 (60-181) - 08/08/14 - TSI 39% (< 140) thyroid peroxidase antibody 1 IU/mL (< 9.0), thyroglobulin antibody < 1 IU/ml (< 1) 03/12/15 - [facility] - TSH receptor antibody < 0.51 IU/L (< 1.75) Assessment & Plan (03/30/2016 12:54 PM CDT): 1. Obtain serum TSH, total T3/T4, basic metabolic panel, and hemoglobin A1c following today's office appointment. 2. Return appointment in six months. 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 1. Expectant observation (consider thyroid uptake scan if hyperthyroidism recurs). . 2. Return appointment in six months. Assessment & Plan (06/02/2015 3:14 PM CDT): Hyperthyroidism; ? Resolved (acute vs subacute thyroiditis vs ?) 1. Expectant observation. 2. Repeat serum TSH, total T3 and total T4 in three months. 3. Return appointment in six months. Assessment & Plan (02/25/2015 1:57 PM CDT): Hyperthyroidism; etiology unclear; euthyroid. 1. Obtain serum TSH, total T3 and total T4 and TSH-receptor antibody following today's office appointment (laboratory requisition given). 2. I will contact adoptive mother, Sharita Griffin (contact telephone: [phone]) with the test results after I have received them and any additional recommendations. 3. Methimazole 5 mg daily. 4. Consider discontinuing methimazole if serum TSH-receptor antibody is unmeasureable. 5. Return appointment in three months. 6. I reviewed my impression and recommendations with Ms. Griffin at the time of the office visit and she was in agreement. Assessment & Plan (11/28/2014 10:18 AM CDT): Grave's disease; well-treated. 1. Orders Placed This Encounter Procedures CBC W AUTO DIFFERENTIAL T3 TOTAL T4 TOTAL ALT AST BLOOD TSH RECEPTOR ANTIBODY 2. . Outpatient Prescriptions Marked as Taking for the 11/25/14 encounter (Hospital Encounter) with Jagdeep Anthony MD Medication Sig methimazole (TAPAZOLE) 5 MG tablet Take 5 mg by mouth once daily. 5. See website: [email or web address].org for patient information handouts - Hypothyroidism And http://www.ncbi.nlm.nih.gov/pubmedhealth/CEZ9515053/#BEOH253706.side_effects_se ction For patient information regarding use and side effects of the medication methimazole which is used to treat Graves disease or hyperthyroidism 6. Return appointment in 3 month(s). Assessment & Plan (08/06/2014 9:33 AM HEAD SCHOOL CUSTODIAN): Hyperthyroidism; etiology unclear [evolving Dane's thyroiditis vs Graves disease vs toxic adenoma vs (less likely) ingestion of L-thyroxine tablets] 1. Orders Placed This Encounter Procedures ANTI THYROID ANTIBODY PANEL ALT T3 TOTAL T4 TOTAL TSH TSI AST BLOOD CBC W AUTO DIFFERENTIAL 2. I will contact Sloan Griffin's adoptivemother by telephone (number: [phone]) with the test results after I have received them and make any additional recommendations. 3. Return appointment in 3 month(s). 4. I reviewed my provisional impressions and recommendations with adoptive other and she was in agreement. 5. See website: thyroid.org for patient information handouts - hyperthyroidism Family History Medical History Relation Name Comments Developmental delays Mother ? 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 Gender Identity Not on file Sexual Orientation Not on file Last Filed Vital Signs Vital Sign Reading Time Taken Comments Blood Pressure 100/78 03/29/2016 12:39 PM CDT Pulse 68 03/29/2016 12:39 PM CDT Temperature - - Respiratory Rate 20 03/29/2016 12:3 9 PM CDT Oxygen Saturation - - Inhaled Oxygen Concentration - - Weight 135.4 kg (298 lb 8.1 oz) 016 12:39 PM CDT Height 176.6 cm (5' 9.53 ) 03/29/2016 1 2:39 PM CDT Body Mass Index 43.41 03/29/2016 12:39 PM CDT Plan of Treatment Health Maintenance Due Date Last Done Comments HIV SCREENING 2012 HEPATITIS C SCREENING 09/08/2015 DTAP/TDAP/TD VACCINES (1 - Tdap) 2016 HEPATITIS B VACCINE (1 of 3 - 19+ 3-dose series) 2016 COVID-19 VACCINE ( - 2023-2 5 season) 2024 DEPRESSION SCREENING 08/29/2024 INFLUENZA VACCINE (Season Ended) 2025 ZOSTER VACCINE (1 of 2) 2047 HIB VACCINE Aged Out No longer eligi ble based on patient's age to complete this topic HPV VACCINE Aged Out No longer eligi ble based on patient's age to complete this topic MENINGOCOCCAL (Group B) VACC INE SHARED DECISION-MAKING Aged Out No longer eligibl e based on patient's age to complete this topic MENINGOCOCCAL GROUPS A/C/Y/W VACCINE Aged Out No longer eligible b ased on patient's age to complete this topic PNEUMOCOCCAL VACCINE Aged Out No long er eligible based on patient's age to complete this topic Insurance MEDICAID - [place] Care Teams Engineering Specialist Relationship Specialty Start Date End Date Malika El MD [address] [place] [id number] PCP - General Pediatrics 08/05/14
--- OUTSIDE RECORDS SUMMARY | 2025-01-08 18:56 | XMS_ITS | Clinical Summary ---
Author Organization [facility] Address [address] [place] [address] Care Team Providers Care Cardiac Cath Lab Radiology Technologist Name Role Phone Ann Simpson PA-C Primary Care Provider [phone] Allergies Active Allergy Reactions Criticality Noted Date Comments Dander Itching 05/21/2016 Mirtazapine Unknown 04/30/2019 Sulfamethoxazole-Trimethoprim Unknown 2018 Sulfa Antibiotics Unknown 04/30/2019 Medications OLANZapine (ZYPREXA) 7.5 MG tablet Take 1 tablet by mouth daily. Active hyoscyamine 0.125 MG tabletIndication s:Generalized abdominal pain Take one tablet every 4 hours for abdominal cramping. Do not exceed 3 tablets per day 30 tablet 0 Active nystatin creamIndications :Fungal infection Apply topically 2 (two) times daily. 30 g 1 0 Active omeprazole 20 MG capsuleIndicatio ns:Gastroesophag eal reflux disease, esophagitis presence not specified Take 1 capsule (20 mg total) by mouth daily. 30 capsule 2 0 Active traMADol 50 MG tablet 0 Active ibuprofen 200 MG tablet Take 800 mg by mouth every 6 (six) hours as needed for Pain. Active Active Problems Problem Noted Date Diagnosed Date Shoulder pain 06/30/2020 Acid reflux disease 02/24/2020 [facility] ([facility]/HCC) 02/24/2020 Fungal infection 02/24/2020 Generalized abdominal pain 02/24/2020 Immunizations Immunization Administration Dates Next Due Tdap (Boostrix) 12/23/2022 Social History Tobacco Use Types Packs/Day Years Used Date Smoking Tobacco: Never Smokeless Tobacco: Never Alcohol Use Standard Drinks/Week Comments Yes 0 (1 standard drink = 0.6 oz pur e alcohol) occ AUDIT-C Answer Date Recorded Frequency of Alcohol Consumption Never 02/14/2019 Average Number of Drinks Not on file 019 Frequency of Binge Drinking Not on file 01/27 Sex and Gender Information Value Date Recorded Sex Assigned at Not on file Legal Sex Male 7:28 PM CDT Gender Identity Not on file Sexual Orientation Not on file Last Filed Vital Signs Vital Sign Reading Time Taken Comments Blood Pressure 134/80 12/23/2022 9:50 AM CDT Pulse 72 12/23/2022 9:50 AM CDT Temperature 36.2 C (97.2 F) 12/23/2022 9:50 AM CDT Respiratory Rate 16 12/23/2022 9:50 AM CDT Oxygen Saturation 98% 12/23/2022 9:50 AM CDT Inhaled Oxygen Concentration - - Weight 108.9 kg (240 lb) 12/23/2022 9:18 AM CDT Height 180.3 cm (5' 11 ) 12/23/2022 9:18 AM CDT Body Mass Index 33.47 12/23/2022 9:18 AM CDT Plan of Treatment Health Maintenance Due Date Last Done Comments Annual Physical 2000 Hepatitis C 2015 COVID-19 Vaccine ( season) 2024 DTaP, Tdap and Td Vaccines (7 - Td or Tdap) 12/23/2032 12/23/2022, 04/22/2009, 04/22/2003, Additional history exists Hepatitis B Vaccines Completed 06/13/1998, 1997, 1997 Meningococcal Vaccine Completed 10/15/2013, 009 HPV Vaccines Completed 04/17/2014, 09/29, 05/22/2012 Meningococcal B Vaccine Aged Out No l onger eligible based on patient's age to complete this topic Pneumococcal Vaccine: Pediatrics (0 to 5 Years) and At-Risk Patients (6 to 49 Years) Aged Out No longer eligible based on patient's age to complete this topic RSV Immunizations Under 20 Months Aged Out No longer eligible based on patient's age to complete this topic Insurance [place] Care Teams Cardiac Cath Lab Radiology Technologist Relationship Specialty Start Date End Date Ann Simpson PA-C [address] [place] [phone] PCP - General PHYSICIAN TERRITORY MANAGER 12/19/23
--- OUTSIDE RECORDS SUMMARY | 2025-01-08 18:56 | XMS_ITS | Encounter Summary ---
Author Organization [facility] Address [address] [place] [address] Care Team Providers Care Supervisor Coal Handling Name Role Phone Malika El MD Primary Care Provider Reason for Visit * Reason Onset Date Comments Results 04/22/2015 Encounter Details Date Type Department Care Team (Late st Contact Info) Description 04/22/2015 Telephone [facility] Pediatrics - Endocrinology [address] [place] [phone] Jagdeep Anthony MD [address] [place] [phone] Results Social History Tobacco Use Types Packs/Day Years Used Date Smoking Tobacco: Never Alcohol Use Standard Drinks/Week Comments No 0 (1 standard drink = 0.6 oz pur e alcohol) Sex and Gender Information Value Date Recorded Sex Assigned at Not on file 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
[2025-01-08 19:09] VITALS: BP 131/78; PULSE 71; RESP 18; TEMP 37; O2SAT 99
--- NOTE | 2025-01-08 19:17 | ED_ITS ---
HPI - Skin/Abscess/Foreign Bdy General Chief complaint: Skin/Abscess/Foreign Body Stated complaint: spider Bite on Back Time Seen by Provider: 01/08/25 19:17 Source: patient, RN notes reviewed and old records reviewed Mode of arrival: ambulatory Limitations: no limitations History of Present Illness HPI narrative: 29-year-old male presents to [facility] with a draining red raised area that is warm to touch to the left lower lumbar area. patient reports that he was crawling under a house today. Clear serous tingling is fluid noted from the wound, collected and sent for culture Related Data Home Medications ?Medication ?Instructions ?Recorded ?Confirmed ?Last Taken ?Type olanzapine 7.5 mg tablet 7.5 mg PO DAILY 04/10/21 05/30/24 Unknown History omeprazole 20 mg capsule,delayed 20 mg PO DAILY 11/04/22 05/30/24 Unknown History release Allergies Allergy/AdvReac Type Severity Reaction Status Date / Time cat dander Allergy Swelling Verified 01/08/25 19:22 of Lip/Tongue/Throat Review of Systems 2 Review of Systems: All systems reviewed & are unremarkable except as noted in HPI and below Constitutional: Constitutional: Reports no additional constitutional complaints ENT: Reports system reviewed and no additional complaints, except as documented Cardiovascular: Cardiovascular: Reports no additional cardiovascular complaints, Denies chest pain and Denies dyspnea Respiratory: Respiratory: Reports no additional respiratory complaints, Denies chest congestion, Denies cough and Denies dyspnea Musculoskeletal: Musculoskeletal: Reports no additional musculoskeletal complaints Integumentary/Breasts: Skin/Breast: Reports as per HPI [facility] Past Medical History Medical History Mood disorder Social History Social History Gender identity (if verbalized by the patient): Male Comments At the time of my signature, I reviewed and agree with the nursing past medical, surgical, social, and family history. There is no relevant family history pertinent to the patient complaint. Exam 2 Const: General: cooperative, healthy appearing, comfortable, no acute distress, well developed, alert and well nourished Nutritional Appearance: w ell nourished and obese Orientation/consciousness: patient oriented x3 L imitations: no limitations HENMT: Head: normal to inspection Eyes: General: appearance normal, both eyes and all related structures A lignment and Position: alignment normal Neck: Neck: normal visual inspection, full ROM, no lymphadenopathy and no meningeal signs Chest: Chest palpation & inspection: normal inspection of the chest Resp: Effort & Inspection: normal respiratory effort and able to speak in complete sentences Cardio: Rate: regular rate Skin: General skin exam: normal color and no rashes or lesions noted L esions: lesion noted Full body images: 1. 1 and half by 1 cm red raised area, serous sanguinous drainage noted. Warm to touch. Neuro: General: patient oriented x3, gait normal, moves all extremities and no meningeal signs Cognition (Neuro): normal cognition Speech: normal speech Gait exam (Neuro): Normal gait present Extrem: General: normal to inspection, full ROM, capillary refill normal and normal gait Psych: Appearance: grossly normal and well kempt Mental Status: mental status grossly normal Speech and movement: Normal speech and movement present and Clear speech present Affect: normal affect Attitude: cooperative Course Course Level of Care: Express Care Visit Vital Signs Vital signs: Vital Signs Temperature 98.6 F 01/08/25 19:09 Pulse Rate 71 01/08/25 19:09 Respiratory Rate 18 01/08/25 19:09 Blood Pressure 131/78 01/08/25 19:09 Pulse Oximetry 99 01/08/25 19:09 Oxygen Delivery Room Air 01/08/25 19:09 Temperature 98.6 F 01/08/25 19:09 Pulse Rate 71 01/08/25 19:09 Respiratory Rate 18 01/08/25 19:09 Blood Pressure 131/78 01/08/25 19:09 Pulse Oximetry 99 01/08/25 19:09 Oxygen Delivery Room Air 01/08/25 19:09 Reviewed MDM - Skin/Abscess/Foreign Bdy MDM Narrative Medical decision making narrative: Patient in exam room. Patient is nontoxic, vitals are stable. Patient presents with a red raised area to the left lower back. Patient describes it is itchy and painful. Culture collected sent to lab. Will cover with antibiotics. Patient appropriate for outpatient treatment with close follow-up Discharge instructions reviewed with patient, as well as provided in writing per nursing staff. The instructions also include specific and strict return/GO TO THE ER as well as f/u information. All questions have been answered, and the patient deny any further questions with discharge and discharge plan. Some parts of this dictation were generated by voice recognition software and may contain typographical and/or grammatical inaccuracies. Differential Diagnosis Differential diagnosis: Likely abscess of skin or subcutaneous tissue, herpes zoster, cellulitis, eczema, insect bites, impetigo and other ( folliculitis) Critical Care Time Critical Care Time Critical Care Time: No Discharge Plan Discharge Clinical Impression: Cellulitis, Insect bites Patient Disposition: Home Condition: Stable Instructions: Antibiotic Form, Cellulitis (ED) Additional Instructions: DO NOT pick at the area. This will only make the area worse and drive infection deeper. Shower and wash with soapy water. Keep area clean and dry. Take all the antibiotics as prescribed. Make sure to keep a dressing in place especially while it is draining Follow up with PCP in 7-10 days go to the ER for worsened condition or Symptoms Patient Language: Turkmen Prescriptions: New cephalexin 500 mg capsule 500 mg PO TID 7 Days Qty: 21 0RF No Action olanzapine 7.5 mg tablet 7.5 mg PO DAILY omeprazole 20 mg Capsule,Delayed Release(Dr/Ec) 20 mg PO DAILY Follow-up/Referrals: [facility],KEVIN Joshi [Primary Care Provider] - Stand Alone Forms: Work/School Release IP Time of Disposition: 19:28
== END 2025-01-08 19:32 | disposition home or self-care (01) ==
PROVIDERS: Emergency Provider Nurse Practitioner; PCP Physician Assistant
DX: L03.312 Cellulitis of back [any part except buttock and flank] (principal); S30.860A Insect bite (nonvenomous) of lower back and pelvis, initial encounter; W57.XXXA Bitten or stung by nonvenomous insect and other nonvenomous arthropods, initial encounter
CPT/HCPCS: 87070; 87075; 87205; 99213; G0463